=== PATIENT | male | born 1975 | race Caucasian/White ===

== ENCOUNTER 2019-02-27 10:59 | Emergency (ER) | payer MEDICAID ==
[2019-02-27 11:05] VITALS: BP 152/90
[2019-02-27] MEDS ORDERED: FLUCONAZOLE 100 MG TABLET PO ONE (11:57)
--- NOTE | 2019-02-27 11:58 | ER Document Report ---
HPI - HPI Patient complains to provider of: rash anxiety Time Seen by Provider: 02/27/19 11:43 Onset: Other Quality of pain: No pain Context: 43-year-old male presents emergency department with complaints of a itchy rash he is had for over 3 months and anxiety. Reports he has had this rash in the past, pityriasis versicolor and has been treated with antifungals. He reports the topical does not work for him he needs oral antifungals. Patient reports last time he had this they treated with Diflucan for 7 days and it went away. Patient also reports that his fiance recently at [facility]. He reports on January 11 she was being treated for a GI bleed when they gave her medication she had a seizure and then she had a heart attack. He reports he witnessed the whole thing he was there when they cut her open and during the entire code. He reports now when he tries to go to sleep at night he wakes up almost hourly and is having trouble sleeping. He denies suicidal or homicidal ideations. Reports he is trying to get in with a primary care but no appointments are available yet he has not made an appointment. Associated Symptoms: None Exacerbated by: Denies Relieved by: Denies Similar symptoms previously: Yes Recently seen / treated by doctor: No Past Medical History - General Information source: Patient - Social History Smoking Status: Current Every Day Smoker Cigarette use (# per day): Yes Frequency of alcohol use: None Drug Abuse: None Family History: None Patient has suicidal ideation: No Patient has homicidal ideation: No Skin Medical History: Reports Other - Pityriasis versicolor Surgical Hx: Negative Vertical Provider Document - CONSTITUTIONAL Agree With Documented VS: Yes Exam Limitations: No Limitations General Appearance: WD/WN, No Apparent Distress - HEENT HEENT: Atraumatic, Normocephalic - NECK Neck: Normal Inspection, Supple. negative: Lymphadenopathy-Left, Lymphadenopathy-Right - RESPIRATORY Respiratory: Breath Sounds Normal - CARDIOVASCULAR Cardiovascular: Regular Rate - GI/ABDOMEN Gastrointestinal: Abdomen Soft - MUSCULOSKELETAL/EXTREMETIES Musculoskeletal/Extremeties: PATRICA CHING - NEURO Level of Consciousness: Awake, Alert, Appropriate Motor/Sensory: No Motor Deficit - DERM Integumentary: Warm, Dry, Rash - Flat irregular faint eyrthemic with areas of hypopigment rash noted to patient's trunk, no vesicles no pustules blanches easily, no open wounds Course - Re-evaluation Re-evalutation: 02/27/19 13:03 This patient presents emergency department with complaints of tinea versicolor for the past 3 months. Reports he has had it in the past. Reports he always has to be treated with oral antifungals the topical does not work on him. Also reports anxiety due to the recent of his fiance. Patient was given prescription for Diflucan. He was also given information on primary care provi ders. Patient was given information on mental health providers to follow-up with. He was instructed to take Tylenol PM as indicated for his anxiety and also helps with the itching. He verbalized understanding to all instructions. Dictation of this chart was performed using voice recognition software; therefore, there may be some unintended grammatical errors. - Vital Signs Vital signs: Temp Pulse Resp BP Pulse Ox 98.2 F 89 18 152/90 H 100 02/27/19 11:04 02/27/19 11:04 02/27/19 11:04 02/27/19 11:04 02/27/19 11:04 Discharge - Discharge Clinical Impression: Pityriasis versicolor, Anxiety Condition: Stable Disposition: HOME, SELF-CARE Instructions: Anxiety ([facility]), [facility], Use of Diphenhydramine, Fluconazole ([facility]) Additional Instructions: *You have been evaluated for a rash, pityriasis versicolor, anxiety *Avoid itching take Benadryl as indicated *Take medication as prescribed Follow-up with the [facility] within 1 week Follow-up with mental health within 1 week *Return to ED for worsening condition, changes, needs Prescriptions: Fluconazole [Diflucan] 150 mg PO DAILY #7 tablet Forms: Elevated Blood Pressure Referrals: [facility] [Provider Group] - Follow up in 1 week
== END 2019-02-27 12:13 | disposition home or self-care (01) ==
LOC: ER 10:59
DX: B36.0 Pityriasis versicolor (principal); F41.9 Anxiety disorder, unspecified; I25.2 Old myocardial infarction; F17.210 Nicotine dependence, cigarettes, uncomplicated
CPT/HCPCS: 99282